=== PATIENT | female | born 1980 | race Caucasian/White ===

== ENCOUNTER 2021-03-07 06:20 | Emergency (ER) | payer OTHER ==
[2021-03-07] MEDS ORDERED: CLEOCIN HCL300 MG PO (08:00)
[2021-03-07] MEDS ORDERED: MEDROL DOSEPAK 24 MG PO (08:00)
== END 2021-03-07 08:20 | disposition home or self-care (01) ==
LOC: ER1 06:20
DX: J02.9 Acute pharyngitis, unspecified (principal); F17.210 Nicotine dependence, cigarettes, uncomplicated; Z88.0 Allergy status to penicillin
CPT/HCPCS: 87081; 87880; 96372; 96374; 99283; J1100